=== PATIENT | female | born 1980 | race Asian ===

== ENCOUNTER → 2023-12-03 10:01 | Outpatient (CLI) | payer OTHER, SELFPAY ==
--- NOTE | 2023-12-03 | DI.US.S_ITS ---
LIMITED ULTRASOUND OF LEFT BREAST: 12/03/2023 CLINICAL: Patient returns today to evaluate a focal asymmetry in the left breast. Comparison is made to exam dated: 12/03/2023 mammogram - [facility]. Color flow and real-time ultrasound of the left breast 12 o'clock region were performed. Medeiros scale images of the real-time examination were reviewed. There is a 0.6 cm x 0.3 cm x 0.3 cm oval possibly cystic mass in the left breast at 12 o'clock middle depth 4 cm from the nipple with the long axis parallel to the skin. This is nearly anechoic and predominantly hypoechoic with posterior acoustic enhancement. Color flow imaging demonstrates that there is no vascularity present. This correlates with mammography findings. IMPRESSION: PROBABLY BENIGN The 0.6 cm x 0.3 cm x 0.3 cm oval hypoechoic mass in the left breast most likely is a complicated cyst or fibroglandular tissue, and is probably benign. A follow-up left mammogram and an ultrasound in 6 months is recommended to demonstrate stability. Findings and recommendations were conveyed to the patient at time of exam. This exam was interpreted at Station ID: [id number]. Electronically Signed By: Julia banuelos/:12/03/2023 11:13:58 letter sent: Followup Recommended ACR BI-RADS Category 3: Probably Benign
--- NOTE | 2023-12-03 | DI.US.S_ITS ---
LIMITED ULTRASOUND OF RIGHT BREAST AND AXILLA: 12/03/2023 CLINICAL: Palpable right breast lump. Comparison is made to exam dated: 12/03/2023 mammogram - [facility]. Color flow and real-time ultrasound of the right breast 7 o'clock, and axilla regions were performed. Medeiros scale images of the real-time examination were reviewed. There is a 2 cm x 1.6 cm x 1.3 cm oval mass with a circumscribed margin in the right breast at 7 o'clock middle depth 5 cm from the nipple. This oval mass is hypoechoic with an abrupt boundary and internal echoes. This correlates as palpated and with mammography findings. Color flow imaging demonstrates that there is vascularity present. No significant abnormalities were seen sonographically in the right axilla. IMPRESSION: PROBABLY BENIGN The 2 cm mass in the right breast corresponds to the palpable abnormality and the mammogram finding, most likely is a fibroadenoma and is probably benign. A follow-up right ultrasound in 6 months is recommended to demonstrate stability. Findings and recommendations were conveyed to the patient at time of exam. This exam was interpreted at Station ID: [id number]. Electronically Signed By: Juila banuelos/:12/03/2023 11:16:07 letter sent: Followup Recommended ACR BI-RADS Category 3: Probably Benign
--- NOTE | 2023-12-03 10:04 | DI.MG.S_ITS ---
BILATERAL DIGITAL DIAGNOSTIC MAMMOGRAM 3D/2D: 12/03/2023 CLINICAL: Right breast Mass. No prior exams were available for comparison. The breasts are heterogeneously dense, which may obscure small masses (category c / 51-75% glandular tissue). There is a round equal density mass with an obscured and predominantly circumscribed margin in the right breast at 6 o'clock posterior depth. This is seen in additional views. This correlates as palpated. There is an incidental 5 mm irregular high density asymmetry with a microlobulated margin in the left breast at 12 o'clock middle depth. No other significant masses or calcifications are seen in either breast. Benign calcifications are present bilaterally. IMPRESSION: INCOMPLETE: NEED ADDITIONAL IMAGING EVALUATION The round equal density mass in the right breast at 6 o'clock posterior depth corresponds to the palpable abnormality, but remains indeterminate. An ultrasound is recommended. This was performed immediately following this exam. The 5 mm irregular equal density asymmetry in the left breast at 12 o'clock middle depth is incidental and indeterminate. An ultrasound is recommended. This was performed immediately following this exam. Based on the Tyrer Cuzick model (a risk assessment model) the patient's lifetime risk is 13.8% and her 10 year risk is 2.5%. According to the ACR, ACS, and NCCN guidelines, an annual breast MRI exam along with mammogram is recommended if the patient's lifetime risk is 20% or greater. This exam was interpreted at Station ID: [id number]. NOTE: For mammograms, a report in lay terms will be sent to the patient. Approximately 15% of breast malignancies will not be visualized mammographically. In the management of a palpable breast mass, a negative mammogram must not discourage biopsy of a clinically suspicious lesion. Electronically Signed By: Julia banuelos/:12/03/2023 10:49:26 ACR BI-RADS Category 0: Incomplete: Need Additional Imaging Evaluation
== END ==
LOC: MAMMO 10:04
PROVIDERS: Referring Provider Family Medicine; Visit Provider Family Medicine
DX: N63.13 Unspecified lump in the right breast, lower outer quadrant (principal); N63.25 Unspecified lump in the left breast, overlapping quadrants; R92.333 Mammographic heterogeneous density, bilateral breasts; R92.8 Other abnormal and inconclusive findings on diagnostic imaging of breast
CPT/HCPCS: 76642; 77066; G0279

== ENCOUNTER → 2024-11-11 10:14 | Outpatient (CLI) | payer OTHER, SELFPAY ==
--- NOTE | 2024-11-11 10:18 | DI.MG.S_ITS ---
MM diagnostic mammo BI, US breast Bilateral limited: 11/11/2024 BI-RADS: 3 CLINICAL: 44-year old female for bilateral diagnostic mammogram and bilateral diagnostic breast ultrasound that is a follow-up to ultrasound on 12/03/2023. The patient previously had a palpable abnormality in the right breast. Tyrer-zick lifetime risk of 10.0%. No personal or first-degree family history of breast cancer. PRIOR EXAMS 12/03/2023. MAMMOGRAPHY TECHNIQUE: 2D and 3D (tomosynthesis) digital mammographic views obtained, with additional images as needed for full coverage. Current study was also evaluated with a Computer Aided Detection (CAD) system. ULTRASOUND TECHNIQUE: TARGETED Bilateral Breast Ultrasound: Real-time ultrasound exam was performed focused to area of clinical and/or imaging concern. Real-time rincon scale and color doppler imaging of the area of clinical interest was performed with image documentation. DENSITY C. The breasts are heterogeneously dense, which may obscure small masses. MAMMOGRAPHY FINDINGS Right (finding-1): Lower Central, Posterior depth, measuring 1.9cm: Correlating with prior imaging concern there is a circumscribed, oval, equal-density mass present that is unchanged in size and appearance. Left (finding-2): Upper at 12:00, Middle depth: Correlating with prior imaging concern, there is a focal asymmetry present. This finding is less conspicuous compared to the prior exam. ULTRASOUND FINDINGS Right (finding-1): Lower Outer at 7:00, 5 cm from nipple, measuring 1.7 x 1.4 x 2 cm - previously measuring (12/03/2023) 1.6 x 1.3 x 2 cm: Correlating with findings on mammogram and prior imaging concern there is an oval, circumscribed, hypoechoic mass. The mass is unchanged in size and appearance. Doppler shows internal vascularity. Left (finding-2): Upper at 12:00, 4 cm from nipple, measuring 0.4 x 0.3 x 0.3 cm - previously measuring (12/03/2023) 0.6 x 0.3 x 0.3 cm: Correlating with findings on mammogram there is a complicated cyst that has decreased in size. This could represent a benign complicated cyst versus benign fibroglandular tissue. IMPRESSION: Right (Mass): Lower Outer at 7:00, 5 cm from nipple, measuring 1.7 x 1.4 x 2 cm - previously measuring (12/03/2023) 1.6 x 1.3 x 2 cm * Probably Benign. Left * No evidence of malignancy with benign findings. RECOMMENDATIONS Right: Lower Outer at 7:00, 5 cm from nipple * Six month followup with diagnostic ultrasound. COMMENTS: Findings and recommendations were conveyed to the patient during today's evaluation. Recommend clinical follow up for persistent or worsening symptoms with instructions to return sooner if there is development of any clinically suspicious findings in the interim. OVERALL ASSESSMENT CATEGORY BI-RADS-3: Probably Benign. ELECTRONICALLY SIGNED: Cherry Sena M.D. on 11/11/2024 at 12:35:37 PM PT Interpreting Station ID: [id number]
== END ==
PROVIDERS: Referring Provider Physician Assistant; Visit Provider Physician Assistant
DX: R92.8 Other abnormal and inconclusive findings on diagnostic imaging of breast (principal); N63.13 Unspecified lump in the right breast, lower outer quadrant; N60.02 Solitary cyst of left breast; R93.89 Abnormal findings on diagnostic imaging of other specified body structures; R92.333 Mammographic heterogeneous density, bilateral breasts
CPT/HCPCS: 76642; 77066; G0279